=== PATIENT | female | born 1950 | race Caucasian/White ===

== ENCOUNTER 2019-05-07 13:44 | Inpatient (IN) ==
[2019-05-07] MEDS ORDERED: ASPIRIN PO ONE (14:02)
[2019-05-07] MEDS ORDERED: CARDIZEM IV ONE ×3 (14:17→17:33)
[2019-05-07] MEDS ORDERED: ZOFRAN IV ONE (14:20)
--- NOTE | 2019-05-07 14:25 | PROVIDER DOCUMENTATION ---
HPI-Chest Pain - General Chief Complaint: Shortness of Breath Stated Complaint: SOB / COPD Time Seen by Provider: 05/07/19 14:10 Source: patient Allergies/Adverse Reactions: Patient Allergies Allergy/AdvReac Type Severity Reaction Status Date / Time No Known Allergies Allergy Verified 03/07/14 09:14 Home Medications: Home Medication List Medication Instructions Recorded Confirmed Last Taken Type Albuterol [Albuterol Neb] INH 4XDAY 03/07/14 03/07/14 03/06/14 History Hydrocodone/APAP 5 mg/325 mg 1 - 2 tab PO Q6H PRN PRN #18 tablet 03/07/14 Unknown Rx [[place]-5] Ibuprofen 800 mg PO PRN 03/07/14 03/07/14 03/06/14 History - History of Present Illness-CP Nature of Presenting Problem: 68 yr old F, hx of COPD, presenting with sudden onset of generalized body shakes, followed by dull, aching pain in the right and then left shoulder. The pt was at rest, states she developed these shakes out of nowhere. She takes breathing treatments regularly, and states that sometimes she does get shaky after a treatment, but these shakes were completely different. She admits to being ill in recent days with a "bad cold". The pt reports SOB. She was able to drive herself to the ER. Location: reports: shoulder Chest Pain Radiation: reports: shoulders Quality of Pain: reports: dull Severity in ED: moderate Onset/Duration: 1-3 hours ago Timing: still present Context/Activities at Onset: reports: none Associated Symptoms: reports: shortness of breath Nitro Today/Relief: no nitro taken today Aspirin Treatment Today: 325 mg x 1, provided by ED Prior Chest Pain/Cardiac Workup: reports: no prior chest pain Similar Symptoms Previously?: No Review of Systems - Adult - REVIEW OF SYSTEMS - ADULT Constitutional: reports: see HPI Eyes: reports: no symptoms reported Ears, Nose, Mouth & Throat: reports: no symptoms reported Cardiovascular: reports: see HPI Respiratory: reports: see HPI Gastrointestinal: reports: no symptoms reported Genitourinary: reports: no symptoms reported Musculoskeletal: reports: see HPI Integumentary: reports: no symptoms reported Neurological: reports: no symptoms reported Psychiatric: reports: no symptoms reported Endocrine: reports: no symptoms reported Hematologic/Lymphatic: reports: no symptoms reported Allergic/Immunologic: reports: no symptoms reported Past History - Adult - PAST MEDICAL HISTORY-ADULT Review of Records: reports: Nursing Assessment Review Major Childhood Illnesses: reports: denies history Cardiovascular: reports: denies history Respiratory: reports: COPD Gastrointestinal: reports: denies history Obstetrical/Gynecological: reports: denies history Genitourinary: reports: denies history Musculoskeletal: reports: denies history Neurological: reports: denies history Endocrine/Immune: reports: denies history Other Conditions: reports: denies history - PRIOR SURGERIES/PROCEDURES Surgical/Procedure History: reports: hysterectomy - FAMILY HISTORY Family History: reviewed, not pertinent - SOCIAL HISTORY Smoking: cigarettes, less than 1 pack/day Provider spent 3-5 mins advising pt. on dangers of tobacco.: Discussed manners to quit use, and f/u contacts for add'l counseling. Living Situation: family Physical Exam-General - CONSTITUTIONAL General Appearance: alert, mild distress - EYES Eyes: PERRL/EOMI - HEAD, EARS, NOSE, MOUTH & THROAT HENMT: normocephalic/atraumatic, moist mucous membranes - RESPIRATORY Respiratory: lungs clear, normal breath sounds - CARDIOVASCULAR Cardiovascular: tachycardia - GASTROINTESTINAL (ABDOMEN) Abdominal Exam: normal bowel sounds, non tender, soft - SKIN Integumentary: normal color, normal turgor, warm/dry - PSYCHIATRIC Psych/Mental Status: normal mood/affect, oriented x 3 - HEART Score HEART Score: History: Slightly Suspicious HEART Score: ECG: Normal HEART Score: Age: > or = 65 Years HEART Score: Risk Factors for Atherosclerotic Disease: 1 or 2 Risk Factors HEART Score: Troponin: < or = Normal Limit Total HEART Score:: 3 Progress - PLAN OF CARE/RESULTS Progress/Plan/Lab Results: Vital Signs - 8 hr 05/07/19 13:53 05/07/19 15:00 05/07/19 15:14 Temperature 99.1 F 100.4 F H Pulse Rate 146 H 135 H 134 H Respiratory Rate 22 37 H 22 Blood Pressure 153/79 149/78 O2 Sat by Pulse Oximetry 100 99 99 05/07/19 16:00 05/07/19 17:04 05/07/19 18:00 Temperature 100.5 F H 99.5 F Pulse Rate 128 H 130 H 109 H Respiratory Rate 32 H 22 33 H Blood Pressure 113/59 136/79 103/50 O2 Sat by Pulse Oximetry 99 100 99 Laboratory Results - last 24 hr 05/07/19 05/07/19 05/07/19 14:10 14:10 14:10 WBC 9.19 RBC 4.80 Hgb 14.8 Hct 44.6 MCV 92.9 MCH 30.8 MCHC 33.2 RDW Std Deviation 12.9 Plt Count 268 MPV 10.1 Immature Gran % (Auto) 0.2 Neut % (Auto) 88.9 H Lymph % (Auto) 9.6 L Young % (Auto) 0.2 L Eos % (Auto) 0.4 Baso % (Auto) 0.7 Immature Gran # (Auto) 0.02 Neut # (Auto) 8.17 H Lymph # (Auto) 0.88 L Young # (Auto) 0.02 L Eos # (Auto) 0.04 Baso # (Auto) 0.06 PT INR PTT (Actin FS) D-Dimer, Quantitative Sodium 137 Potassium 4.5 Chloride 98 Carbon Dioxide 23 L Anion Gap 16 BUN 6 L Creatinine 0.5 Estimated GFR/1.73 m2 > 60 BUN/Creatinine Ratio 12 Glucose 112 H Calculated Osmolality 272 Calcium 9.4 Magnesium Total Bilirubin 0.70 AST 39 H ALT 27 Alkaline Phosphatase 138 H Creatine Kinase 174 H Creatine Kinase Index 1.5 CK-MB (CK-2) 2.59 Troponin T [id number]-[id number]-Ayqkmvcbqtf Pept 367 H Total Protein 7.7 Albumin 4.4 Globulin 3.0 Albumin/Globulin Ratio 1.0 Plasma Lactate TSH Influenza A (Rapid) Influenza B (Rapid) 05/07/19 05/07/19 05/07/19 14:10 14:10 14:10 WBC RBC Hgb Hct MCV MCH MCHC RDW Std Deviation Plt Count MPV Immature Gran % (Auto) Neut % (Auto) Lymph % (Auto) Young % (Auto) Eos % (Auto) Baso % (Auto) Immature Gran # (Auto) Neut # (Auto) Lymph # (Auto) Young # (Auto) Eos # (Auto) Baso # (Auto) PT 12.7 INR 0.91 PTT (Actin FS) 23.4 D-Dimer, Quantitative Sodium Potassium Chloride Carbon Dioxide Anion Gap BUN Creatinine Estimated GFR/1.73 m2 BUN/Creatinine Ratio Glucose Calculated Osmolality Calcium Magnesium Total Bilirubin AST ALT Alkaline Phosphatase Creatine Kinase Creatine Kinase Index CK-MB (CK-2) Troponin T < 0.010 Mvb-[id number]-Zphfckgdcxb Pept Total Protein Albumin Globulin Albumin/Globulin Ratio Plasma Lactate 2.0 TSH Influenza A (Rapid) Influenza B (Rapid) 05/07/19 05/07/19 05/07/19 14:10 14:10 14:10 WBC RBC Hgb Hct MCV MCH MCHC RDW Std Deviation Plt Count MPV Immature Gran % (Auto) Neut % (Auto) Lymph % (Auto) Young % (Auto) Eos % (Auto) Baso % (Auto) Immature Gran # (Auto) Neut # (Auto) Lymph # (Auto) Young # (Auto) Eos # (Auto) Baso # (Auto) PT INR PTT (Actin FS) D-Dimer, Quantitative 2.30 H Sodium Potassium Chloride Carbon Dioxide Anion Gap BUN Creatinine Estimated GFR/1.73 m2 BUN/Creatinine Ratio Glucose Calculated Osmolality Calcium Magnesium 1.5 Total Bilirubin AST ALT Alkaline Phosphatase Creatine Kinase Creatine Kinase Index CK-MB (CK-2) Troponin T She-T-Podsyfpizkb Pept Total Protein Albumin Globulin Albumin/Globulin Ratio Plasma Lactate TSH 0.36 Influenza A (Rapid) Influenza B (Rapid) 05/07/19 05/07/19 14:50 17:46 WBC RBC Hgb Hct MCV MCH MCHC RDW Std Deviation Plt Count MPV Immature Gran % (Auto) Neut % (Auto) Lymph % (Auto) Young % (Auto) Eos % (Auto) Baso % (Auto) Immature Gran # (Auto) Neut # (Auto) Lymph # (Auto) Young # (Auto) Eos # (Auto) Baso # (Auto) PT INR PTT (Actin FS) D-Dimer, Quantitative Sodium Potassium Chloride Carbon Dioxide Anion Gap BUN Creatinine Estimated GFR/1.73 m2 BUN/Creatinine Ratio Glucose Calculated Osmolality Calcium Magnesium Total Bilirubin AST ALT Alkaline Phosphatase Creatine Kinase Creatine Kinase Index CK-MB (CK-2) Troponin T < 0.010 Vzw-Y-Sxawvchegxl Pept Total Protein Albumin Globulin Albumin/Globulin Ratio Plasma Lactate TSH Influenza A (Rapid) NEGATIVE Influenza B (Rapid) NEGATIVE Orders Category Date Time Status Cardiac Monitoring DIRECTED Care 05/07/19 14:03 Active Nursing- Obtain EKG once Care 05/07/19 17:03 Active Oxygen Therapy- ED Nursing DIRECTED Care 05/07/19 14:03 Active Saline Loc NOW Care 05/07/19 14:03 Active CHEST-PORTABLE [RAD] Stat Exams 05/07/19 14:04 Completed CTA [CT ANGIOGRM PULMONARY ARTERIES] [CT] Stat Exams 05/07/19 15:47 Completed BLOOD CULTURE [BLDCUL] Stat Lab 05/07/19 14:12 Ordered CBC WITH ELECTRONIC DIFF [HEME] Stat Lab 05/07/19 14:10 Completed CK PROFILE [SP CHEM] Stat Lab 05/07/19 14:10 Completed COMPREHENSIVE METABOLIC PANEL [CHEM] Stat Lab 05/07/19 14:10 Completed D-DIMER [COAG] Stat Lab 05/07/19 14:[address] Stat Lab 05/07/19 14:50 Completed LACTATE, PLASMA [CHEM] Stat Lab 05/07/19 14:10 Completed LACTATE, PLASMA [CHEM] Stat Lab 05/07/19 18:53 Ordered MAGNESIUM [CHEM] Stat Lab 05/07/19 14:10 Completed PRO B-NATRIURETIC PEPTIDE Stat Lab 05/07/19 14:10 Completed PROTIME WITH INR [COAG] Stat Lab 05/07/19 14:10 Completed PTT [COAG] Stat Lab 05/07/19 14:10 Completed TROPONIN T Stat Lab 05/07/19 14:10 Completed TROPONIN T Stat Lab 05/07/19 17:46 Completed TSH Stat Lab 05/07/19 14:10 Completed URINALYSIS W/POSS RFLX CULT [URINALYSIS] Stat Lab 05/07/19 16:40 Uncollected 0.9% Sodium Chloride Inj [Ns] 1,000 ml Med 05/07/19 14:48 Discontinued IV 999 mls/hr Acetaminophen [Tylenol] Med 05/07/19 14:49 Discontinued 1,000 mg PO NOW ONE Albuterol 2.5MG/Ipratrop 0.5MG [Duoneb (A & A)] Med 05/07/19 14:57 Discontinued 3 ml INH NOW ONE Aspirin Med 05/07/19 14:02 Discontinued 325 mg PO NOW ONE Diltiazem [Cardizem] Med 05/07/19 14:17 Discontinued 10 mg IV NOW ONE Diltiazem [Cardizem] Med 05/07/19 14:35 Discontinued 15 mg IV NOW ONE Diltiazem [Cardizem] Med 05/07/19 17:33 Discontinued 25 mg IV NOW ONE Methylprednisolone Sod Succ [Solu-Medrol] Med 05/07/19 17:02 Discontinued 125 mg IV NOW ONE Morphine Med 05/07/19 16:50 Discontinued 2 mg IV NOW ONE Ondansetron [Zofran] Med 05/07/19 14:20 Discontinued 8 mg IV NOW ONE Aerosol Treatments Routine Oth 05/07/19 14:57 Completed Aerosol Treatments Stat Oth 05/07/19 14:57 Completed CP/SOB/Palp >45 yrs of Age Stat Oth 05/07/19 14:02 Ordered EKG [EKG] Stat Ther 05/07/19 14:03 Draft EKG [EKG] Stat Ther 05/07/19 17:03 Ordered Transfer/Admit Order [TRANSFER] Routine Transfer 05/07/19 18:19 Ordered Result Diagrams: 05/07/19 14:10 05/07/19 14:10 - REASSESSMENT Reassessment #1 Time Reassessed: 18:00 (Pt's heart rate is still running high; despite 25 mg of Cardizem; she jumpted to 170s after a coughing spell; she did drop back down to 110s after an additional 10 mg of Cardizem, but the pt will likely need additional and continuous cardiac monitoring overnight; Dr. Corley kindly accepts the pt for additional management. ) - EKG 1 Time of EKG reading by physician:: 14:27 EKG Read and Signed by:: Manpreet Jaramillo EKG Interpretation (*Must complete 3 of following elements*): Abnormal Rate: 146 Rhythm: sinus tachycardia [place]: normal QRS: normal [place] Interval: normal ST Wave: non-specific ST changes Prior EKG Comparison: no prior EKG - CT/MRI 1 CT Study: Angiogram Impression: See EMR Report ("EXAM: CT ANGIOGRAM PULMONARY ARTERIES - 05/07/2019 HISTORY: elevated d-dimer, SOB TECHNIQUE: CT angiogram pulmonary arteries with intravenous contrast. Axial, coronal, and 3-D MIP images are obtained. COMPARISON: None. FINDINGS: There are no filling defects identified pulmonary arteries. There is mild ectasia of the ascending aorta at 3.7 cm. There is no indication of aortic dissection. There are COPD/emphysematous changes which are most prominent at the upper lobes and superior segment lower lobes. There is scarring at the right apex. There are a couple of calcifications within the right apical scarring. There is a nonspecific 4 mm pleural-based noncalcified nodule near the minor fissure on the right. There is no consolidation, pleural effusion, or pneumothorax identified. There is an apparent 2.6 x 2.3 cm exophytic nodule which arises at the inferior left thyroid lobe. Included sections of upper abdomen show fatty infiltration of the visualized portion of the liver. There is a 6.7 x 4.8 cm uncomplicated diverticulum which arises at the posterior fundus of stomach. IMPRESSION: No evidence of pulmonary embolism. COPD/emphysematous changes. Scarring at right apex. Nonspecific 4 mm pleural-based nodule near the minor fissure on the right. Recommend follow-up per Fleischner Society guidelines. No evidence of pneumonia. No pleural effusion. No pneumothorax. Mild ectasia of ascending aorta. No indication of aortic dissection. Apparent 2.6 x 2.3 cm exophytic nodule arising at the inferior left thyroid. Correlation with thyroid ultrasound could be considered. Fatty infiltration of visualized liver. Uncomplicated diverticulum arising at posterior fundus of stomach. Electronically signed by Jay Wallace 05/07/2019 4:53 PM") - CONSULTS/PCP/HOSPITALIST Notification #1 *Consult/PCP/Hospitalist*: Dr. Mcqueen Time Discussed: 17:55 Consult Disposition: other (defers [place] [facility] as [place] will likely need cardizem drip and this cannot be done at [place]) #2 Consult: Dr. Corley Consult Disposition: Admit Departure - Departure Date of Disposition Decision: 05/07/19 Time of Disposition Decision: 18:24 DIAGNOSIS: Tachycardia with heart rate 141-160 beats per minute, SOB (shortness of breath) Disposition: ADMITTED INPATIENT 09 Certified Medical Emergency: Emergent Condition: Fair Referrals and Follow-Ups: Papi Ramirez MD [Primary Care Provider] - - Critical Care Note This patient required my direct & personal management of CC.: Yes Total Time (mins): 75 Critical Care Statement: This patient required my direct personal management to treat or rule out processes, the absence of which, could potentiallly result in sudden, clinically significant life or limb threatening deterioration. Attestation - Physician/ FRANCIE Attestation Patient care was provided by Advanced Practice Provider:: No The physician spent face to face time with patient:: Yes Advanced Practice Provider documentation review:: Supervising physician onsite and consulted in the evaluation and care of this patient. The physician did have a face to face encounter with the patient.
[2019-05-07 14:46] LABS: BASO# 0.06 X1000 (0.0-0.2); BASO% 0.7 % (0.0-0.8); EOS# 0.04 X1000 (0.0-0.7); EOS% 0.4 % (0.0-10.0); HEMATOCRIT 44.6 % (37.0-47.0); HEMOGLOBIN 14.8 g/dL (12.0-16.0); IMM GRAN# 0.02 X1000 (0.0-0.04); IMM GRAN% 0.2 % (0.0-0.5); LYMPH# 0.88 X1000 (1.2-3.4); LYMPH% 9.6 % (20.5-51.1); MCH 30.8 PG (27-31); MCHC 33.2 g/dL (33-37); MCV 92.9 FL (81-99); MONO# 0.02 X1000 (0.11-0.59); MONO% 0.2 % (1.7-9.3); MPV 10.1 FL (7.4-10.4); NEUT# 8.17 X1000 (1.4-6.5); NEUT% 88.9 % (42.2-75.2); PLT 268 X1000 (130-400); RDW 12.9 % (11.5-14.5); WBC 9.19 X1000 (4.8-10.8)
[2019-05-07] MEDS ORDERED: NS 1,000 ML IV ONE (14:48)
[2019-05-07] MEDS ORDERED: TYLENOL PO ONE (14:49)
[2019-05-07 14:54] LABS: INR 0.91; PROTIME 12.7 Seconds (11.0-16.0); PTT 23.4 Seconds (22.3-41.8)
[2019-05-07] MEDS ORDERED: DUONEB (A & A) INH ONE (14:57)
[2019-05-07 14:59] LABS: AGAP 16; ALBUMIN 4.4 g/dL (3.5-5.0); ALKALINE PHOSPHATASE 138 U/L (32-104); BUN 6 mg/dL (8-22); CALCIUM 9.4 mg/dL (8.8-10.2); CHLORIDE 98 mmol/L (98-107); COSMO 272; CREATININE 0.5 mg/dL (0.5-0.9); ESTIMATED GFR > 60; GLUCOSE 112 mg/dL (70-104); GOT 39 U/L (10-30); GPT 27 U/L (10-36); POTASSIUM 4.5 mmol/L (3.5-5.1); SODIUM 137 mmol/L (136-145); TCO2 23 mmol/L (25-35); TOTAL PROTEIN 7.7 g/dL (6.3-8.3)
[2019-05-07 15:01] LABS: CK PROFILE 174 U/L (24-173)
--- NOTE | 2019-05-07 15:02 | Diag Imaging Result Doc PS360 ---
EXAM: CHEST-PORTABLE - 05/07/2019 HISTORY: sob copd chest pressure TECHNIQUE: Portable chest COMPARISON: 09/09/2015 chest two views FINDINGS: Heart size is normal. There are apparent COPD changes, the lungs do not appear hyperexpanded at this time. There is scarring at the right apex similar to prior. There is no acute consolidation, pleural effusion, or pneumothorax identified. IMPRESSION: COPD changes. Scarring at right apex. No discrete acute changes. Electronically signed by Jay Wallace 05/07/2019 2:59 PM
--- NOTE | 2019-05-07 15:13 | EKG Report ---
Test Performed on : 05/07/2019 2:22:39 PM Test Reason : sob tachycardiac pressure Blood Pressure : / mmHG Vent. Rate : 146 BPM Atrial Rate : 146 BPM P-R Int : 140 ms QRS Dur : 078 ms QT Int : 262 ms P-R-T Axes : 060 037 062 degrees QTc Int : 408 ms Sinus tachycardia. Nonspecific ST abnormality Abnormal ECG No previous ECGs available Confirmed by Papi Ramirez MD ([id number]), design editor Geovanna Bermudez ([id number]) on 06/15/2019 12:37:55 PM
[2019-05-07 15:26] LABS: CK INDEX 1.5 (0.0-2.5); CK-MB 2.59 ng/mL (0.0-5.0)
[2019-05-07 15:56] LABS: INFLUENZA A NEGATIVE (NEGATIVE); INFLUENZA B NEGATIVE (NEGATIVE)
[2019-05-07] MEDS ORDERED: MORPHINE IV ONE (16:50)
--- NOTE | 2019-05-07 16:55 | Diag Imaging Result Doc PS360 ---
EXAM: CT ANGIOGRAM PULMONARY ARTERIES - 05/07/2019 HISTORY: elevated d-dimer, SOB TECHNIQUE: CT angiogram pulmonary arteries with intravenous contrast. Axial, coronal, and 3-D MIP images are obtained. COMPARISON: None. FINDINGS: There are no filling defects identified pulmonary arteries. There is mild ectasia of the ascending aorta at 3.7 cm. There is no indication of aortic dissection. There are COPD/emphysematous changes which are most prominent at the upper lobes and superior segment lower lobes. There is scarring at the right apex. There are a couple of calcifications within the right apical scarring. There is a nonspecific 4 mm pleural-based noncalcified nodule near the minor fissure on the right. There is no consolidation, pleural effusion, or pneumothorax identified. There is an apparent 2.6 x 2.3 cm exophytic nodule which arises at the inferior left thyroid lobe. Included sections of upper abdomen show fatty infiltration of the visualized portion of the liver. There is a 6.7 x 4.8 cm uncomplicated diverticulum which arises at the posterior fundus of stomach. IMPRESSION: No evidence of pulmonary embolism. COPD/emphysematous changes. Scarring at right apex. Nonspecific 4 mm pleural-based nodule near the minor fissure on the right. Recommend follow-up per Fleischner Society guidelines. No evidence of pneumonia. No pleural effusion. No pneumothorax. Mild ectasia of ascending aorta. No indication of aortic dissection. Apparent 2.6 x 2.3 cm exophytic nodule arising at the inferior left thyroid. Correlation with thyroid ultrasound could be considered. Fatty infiltration of visualized liver. Uncomplicated diverticulum arising at posterior fundus of stomach. Electronically signed by Jay Wallace 05/07/2019 4:53 PM
[2019-05-07] MEDS ORDERED: SOLU-MEDROL IV ONE (17:02)
--- NOTE | 2019-05-07 19:23 | HISTORY AND PHYSICAL ---
CHIEF COMPLAINT: Shortness of breath. HISTORY OF PRESENT ILLNESS: The patient is a 68-year-old female who has a known history of COPD. She presented to the emergency department with increased work of breathing and shortness of breath. Notes that she had generalized body shaking earlier followed by dull aching pain in her right arm and left shoulder. States that these shakes came out of nowhere. Notes that she has been taking breathing treatments regularly. Sometimes she gets shaky after the treatments, but this seemed to be completely different. She has had a cold for the past couple of days with increased work of breathing. She was able to drive herself to the ER. ALLERGIES: No known drug allergies. MEDICATIONS: 1. Albuterol. 2. [place] p.r.n. REVIEW OF SYSTEMS: As noted above. Positive cough, congestion, increased work of breathing. She has had increased shortness of breath over the past few days. Denies any fevers, chills, headaches, blurred vision. Denies any focalized numbness, tingling, weakness in her extremities. Did have shaking earlier with generalized body shakes. Denies any dysuria, frequency, urgency, hesitancy, polyuria or polydipsia. Denies skin rashes, weight loss or weight gain. PAST MEDICAL HISTORY: Significant for COPD. She has had a hysterectomy. SOCIAL HISTORY: She does smoke, although less than a pack a day. Denies alcohol or other illicit substance use. PRIMARY CARE: Dr. Papi Ramirez. FAMILY HISTORY: Positive for COPD. PHYSICAL EXAMINATION: VITAL SIGNS: Reviewed. Temperature 99 degrees. Pulse 146 initially, currently 106 after Cardizem. Respiratory 22. BP 153/79. Oxygen saturation 100% on room air. GENERAL: Patient is a well developed female who is in mild respiratory distress. She is very pleasant to talk with and answers all questions. HEENT: Normocephalic. NECK: Supple. CV: Tachycardia, although appears regular rhythm. CHEST: Decreased, but equal. No current crackles appreciable. No current wheezing. ABDOMEN: Soft, nondistended, nontender. EXTREMITIES: Moves all extremities. NEUROLOGIC: No focal changes. She is awake, alert, oriented x3. LABS: CTA is negative for pulmonary emboli. It is positive for COPD changes. CBC and CMP are essentially negative. D-dimer 2.3 with no previous history on record. BNP is normal at 367. Influenza A and B are both negative. ASSESSMENT: 1. Supraventricular tachycardia. 2. Chronic obstructive pulmonary disease. 3. Elevated D-dimer with a negative CTA. Lower extremity Doppler is pending. PLAN: 1. We are going to admit patient to the hospital. 2. She has had intravenous Cardizem in the emergency room already and her heart rates have dropped to 100s and 110s. 3. We are going to place her in the hospital, continue to follow her labs. 4. Check ultrasound of lower extremities. 5. Use intravenous Cardizem as needed. 6. Further orders as needed. cc: Rafa Corley MD
[2019-05-07 19:41] LABS: URINE SOURCE CLEAN CATCH
[2019-05-07 19:45] LABS: BILIRUBIN URINE NEGATIVE (NEGATIVE); BLOOD URINE SMALL (NEGATIVE); COLOR YELLOW; GLUCOSE URINE NEGATIVE (NEGATIVE); KETONE URINE NEGATIVE (NEGATIVE); LEUKOCYTES URINE LARGE (NEGATIVE); NITRITE URINE POSITIVE (NEGATIVE); PH URINE 6.5; PROTEIN URINE 30 mg/dL (NEGATIVE); SP GRAVITY URINE 1.047; TURBIDITY URINE HAZY (CLEAR); UROBILINOGEN URINE NORMAL (NORMAL)
[2019-05-07 19:56] LABS: URINE WBC TNTC /HPF (<10)
[2019-05-07 19:58] LABS: UR EPITHELIAL CELLS <10 /HPF (<10); URINE BACTERIA 2+ /HPF; URINE RBC <10 /HPF (<10)
[2019-05-07 19:59] LABS: URINE CASTS NONE SEEN; URINE CRYSTALS NONE SEEN; URINE SMALL ROUND CELLS NONE SEEN; URINE YEAST NONE SEEN
[2019-05-07] MEDS ORDERED: CARDIZEM IV PRN (21:03)
[2019-05-07] MEDS: TYLENOL PO PRN (21:20)
[2019-05-07] MEDS ORDERED: TESSALON PO PRN (21:40)
[2019-05-08] MEDS: XOPENEX NEB INH PRN ×6 (03:30→23:05)
--- NOTE | 2019-05-08 06:28 | Diag Imaging Result Doc PS360 ---
EXAM: CHEST-PORTABLE HISTORY: f/u TECHNIQUE: Single view COMPARISON: 05/07/2019 FINDINGS: The lungs are well expanded. No cardiomegaly. Increased interstitial markings in the right upper lung are unchanged. No pleural effusions identified. No pulmonary edema. IMPRESSION: Stable chest Electronically signed by Dexter Dejesus 05/08/2019 6:25 AM
[2019-05-08 06:37] LABS: BASO# 0.02 X1000 (0.0-0.2); BASO% 0.1 % (0.0-0.8); EOS# 0.01 X1000 (0.0-0.7); HEMATOCRIT 38.9 % (37.0-47.0); HEMOGLOBIN 12.8 g/dL (12.0-16.0); IMM GRAN# 0.09 X1000 (0.0-0.04); IMM GRAN% 0.4 % (0.0-0.5); LYMPH# 1.24 X1000 (1.2-3.4); LYMPH% 5.1 % (20.5-51.1); MCH 31.1 PG (27-31); MCHC 32.9 g/dL (33-37); MCV 94.4 FL (81-99); MONO# 0.58 X1000 (0.11-0.59); MONO% 2.4 % (1.7-9.3); NEUT# 22.38 X1000 (1.4-6.5); PLT 245 X1000 (130-400); RBC 4.12 XMIL (4.2-5.4); RDW 13.2 % (11.5-14.5); WBC 24.32 X1000 (4.8-10.8)
[2019-05-08 06:51] LABS: AGAP 11; ALB/GLOB RATIO 1.3; ALBUMIN 3.4 g/dL (3.5-5.0); ALKALINE PHOSPHATASE 109 U/L (32-104); BUN 10 mg/dL (8-22); CALCIUM 8.6 mg/dL (8.8-10.2); CHLORIDE 99 mmol/L (98-107); COSMO 272; CREATININE 0.5 mg/dL (0.5-0.9); ESTIMATED GFR > 60; GLUCOSE 182 mg/dL (70-104); GOT 18 U/L (10-30); GPT 18 U/L (10-36); MAGNESIUM 1.8 mg/dL (1.5-2.7); POTASSIUM 3.9 mmol/L (3.5-5.1); SODIUM 134 mmol/L (136-145); TCO2 24 mmol/L (25-35); TOTAL BILIRUBIN 0.51 mg/dL (0.20-1.00); TOTAL PROTEIN 6.1 g/dL (6.3-8.3)
[2019-05-08 07:16] LABS: FREE T4 1.27 ng/dL (0.93-1.70); TSH 0.19 uIUmL (0.27-4.20)
--- NOTE | 2019-05-08 07:25 | EKG Report ---
Test Performed on : 05/08/2019 07:06:59 AM Test Reason : tachycardia' Blood Pressure : / mmHG Vent. Rate : 088 BPM Atrial Rate : 088 BPM P-R Int : 178 ms QRS Dur : 090 ms QT Int : 380 ms P-R-T Axes : 078 052 073 degrees QTc Int : 459 ms Normal sinus rhythm. Normal ECG When compared with ECG of 07-MAY-2019 14:22, (Unconfirmed) Vent. rate has decreased BY 58 BPM Confirmed by Jose MCPHERSON, [place] ([id number]) on 05/08/2019 11:25:38 AM
[2019-05-08 08:14] LABS: LYMPHS 4 % (21-51); SEGS 96 % (42-75)
--- NOTE | 2019-05-08 10:04 | Diag Imaging Result Doc PS360 ---
EXAM: US SOFT TISSUE HEAD/NECK HISTORY: Thyroid nodule eval TECHNIQUE: Thyroid ultrasound COMPARISON: Recent chest CT FINDINGS: The right lobe of the thyroid measures 3.8 x 1.7 x 1.8 cm. The left lobe of the thyroid measures 3.7 x 1.4 x 1.5 cm. There are multiple scattered tiny nodules and cysts throughout both lobes. The majority of these measure only several millimeters. There is a 1.0 cm fairly isoechoic nodule in the left lobe. Dominant nodule inferior to the left thyroid lobe is not definitely identified. IMPRESSION: Multiple tiny scattered nodules and cysts. Electronically signed by Dexter Dejesus 05/08/2019 10:01 AM
[2019-05-08] MEDS: INVANZ 1 GM/NS 1 GM/50 ML IVPB IV SCH (10:29)
[2019-05-08] MEDS: TYLENOL PO PRN ×2 (10:29→20:50)
[2019-05-08] MEDS: ZOFRAN IV PRN (10:29)
--- NOTE | 2019-05-08 12:30 | PROGRESS NOTE ---
DATE: 05/08/2019 SUBJECTIVE: Patient reports feeling fine. No chest pain or chest palpitations. OBJECTIVE: Vital Signs: Temperature 98.1, heart rate 99, respiratory rate 21, blood pressure 118/50, and O2 saturation 100% on 2 liters nasal cannula. General: This is a 68-year-old female, lying in bed, in no acute distress. Cardiovascular: S1, S2 heard. No murmurs, gallops, or rubs. Regular rate and rhythm. Respiratory: Minimal wheezing noted in both pulmonary bases. Patient not using any accessory muscles or having work of breathing. Abdomen: Soft. Nontender to palpation. Bowel sounds present. No organomegaly. Extremities: No clubbing, cyanosis, or edema. Peripheral pulses present in both legs. Neurological: Patient is alert and oriented x3. Moves 4 extremities. LABORATORY DATA: White cell count 24.32, hemoglobin 12.8, hematocrit 38.9. Sodium 134. Urine culture and blood culture showed gram negative rods. ASSESSMENT AND PLAN: 1. Gram-negative bacteremia secondary to urinary tract infection. That is the reason why this patient has become tachycardic. At this point, we are going to start Invanz on this patient. We are going to cancel Cardiology consult because I think this tachycardia is secondary to infection. We will await for results of blood cultures. We will adjust our antibiotic therapy accordingly. Actually, at this point blood pressure is okay. The patient is not tachycardic anymore. We will continue to monitor in the PVC unit. 2. Chronic obstructive pulmonary disease. The patient is not on any exacerbation. We will provide breathing treatments as needed only. 3. Disposition. We will continue with current management. cc: Saurav Pennington MD
[2019-05-09 06:18] LABS: BASO# 0.01 X1000 (0.0-0.2); BASO% 0.1 % (0.0-0.8); EOS# 0.04 X1000 (0.0-0.7); EOS% 0.2 % (0.0-10.0); HEMATOCRIT 35.9 % (37.0-47.0); HEMOGLOBIN 11.5 g/dL (12.0-16.0); IMM GRAN# 0.07 X1000 (0.0-0.04); IMM GRAN% 0.4 % (0.0-0.5); LYMPH# 2.03 X1000 (1.2-3.4); LYMPH% 11.3 % (20.5-51.1); MCH 30.3 PG (27-31); MCV 94.7 FL (81-99); MONO# 0.97 X1000 (0.11-0.59); MONO% 5.4 % (1.7-9.3); MPV 10.1 FL (7.4-10.4); NEUT% 82.6 % (42.2-75.2); PLT 242 X1000 (130-400); RBC 3.79 XMIL (4.2-5.4); RDW 13.2 % (11.5-14.5); WBC 17.92 X1000 (4.8-10.8)
[2019-05-09 06:49] LABS: AGAP 10; ALBUMIN 3.2 g/dL (3.5-5.0); BUN 10 mg/dL (8-22); CALCIUM 8.7 mg/dL (8.8-10.2); CHLORIDE 102 mmol/L (98-107); COSMO 277; CREATININE 0.6 mg/dL (0.5-0.9); ESTIMATED GFR > 60; GLUCOSE 114 mg/dL (70-104); PHOSPHORUS 2.6 mg/dL (2.7-4.5); POTASSIUM 3.5 mmol/L (3.5-5.1); SODIUM 139 mmol/L (136-145); TCO2 27 mmol/L (25-35)
[2019-05-09] MEDS: XOPENEX NEB INH PRN ×3 (07:52→15:42)
[2019-05-09] MEDS: INVANZ 1 GM/NS 1 GM/50 ML IVPB IV SCH (08:28)
--- NOTE | 2019-05-09 10:21 | PROGRESS NOTE ---
DATE: 05/09/2019 SUBJECTIVE: Patient reports feeling fine. Not spiking any fever. OBJECTIVE: Vitals: Temperature 97.9 degrees, heart rate 87, respiratory 17, blood pressure 125/64, O2 saturation 98% 2 L nasal cannula. General Examination: This is a 68-year-old female, lying in bed in no acute distress. Cardiovascular exam: S1, S2 heard. No murmurs, gallops, or rubs. Regular rate and rhythm. Respiratory exam: Minimal wheezing noted in both pulmonary bases. Patient not using any accessory muscles or having work of breathing. Abdomen: Soft, nontender to palpation. Bowel sounds present. No organomegaly. Extremities: No clubbing, cyanosis, or edema. Peripheral pulses present in both legs. Neurological exam: Patient alert and oriented x3. Moves 4 extremities. LABORATORY DATA: White cell count is 17.92, hemoglobin 11.5, hematocrit 35.9, platelets 242. BMP okay. ASSESSMENT AND PLAN: 1. Gram-negative bacteremia secondary to urinary tract infection. So far the urine culture showed Escherichia coli pansensitive. We will continue with Invanz until we know the final sensitivity of the blood culture. She has been admitted to the hospital for tachycardia that was definitely secondary to this blood infection. Now. she is feeling much better. Blood pressure is okay, not tachycardic anymore. So, at this point, we will transfer this patient out of our PVC unit today. 2. Chronic obstructive pulmonary disease. The patient is not in any exacerbation. We will provide breathing treatments as needed only. 3. Disposition: Patient will continue with current management and will be transferred out of the PVC unit today. cc: Saurav Pennington MD
[2019-05-09] MEDS: TYLENOL PO PRN (16:25)
[2019-05-09] MEDS: ZOFRAN IV PRN (16:26)
[2019-05-09] MEDS ORDERED: DESYREL PO SCH (21:00)
[2019-05-10 06:35] LABS: BASO# 0.04 X1000 (0.0-0.2); BASO% 0.5 % (0.0-0.8); EOS% 1.2 % (0.0-10.0); HEMATOCRIT 39.1 % (37.0-47.0); HEMOGLOBIN 12.5 g/dL (12.0-16.0); IMM GRAN# 0.02 X1000 (0.0-0.04); IMM GRAN% 0.2 % (0.0-0.5); LYMPH# 1.56 X1000 (1.2-3.4); LYMPH% 18.7 % (20.5-51.1); MCH 30.4 PG (27-31); MCV 95.1 FL (81-99); MONO# 0.54 X1000 (0.11-0.59); MONO% 6.5 % (1.7-9.3); MPV 9.7 FL (7.4-10.4); NEUT# 6.09 X1000 (1.4-6.5); NEUT% 72.9 % (42.2-75.2); PLT 250 X1000 (130-400); RBC 4.11 XMIL (4.2-5.4); RDW 13.1 % (11.5-14.5); WBC 8.35 X1000 (4.8-10.8)
[2019-05-10] MEDS ORDERED: PRILOSEC PO SCH (07:00)
[2019-05-10 07:13] LABS: AGAP 12; ALBUMIN 3.2 g/dL (3.5-5.0); BUN 8 mg/dL (8-22); CALCIUM 8.9 mg/dL (8.8-10.2); CHLORIDE 102 mmol/L (98-107); COSMO 280; CREATININE 0.6 mg/dL (0.5-0.9); ESTIMATED GFR > 60; GLUCOSE 104 mg/dL (70-104); PHOSPHORUS 3.2 mg/dL (2.7-4.5); POTASSIUM 3.8 mmol/L (3.5-5.1); SODIUM 141 mmol/L (136-145); TCO2 27 mmol/L (25-35)
[2019-05-10 07:24] VITALS: BP 137/66
[2019-05-10] MEDS: INVANZ 1 GM/NS 1 GM/50 ML IVPB IV SCH (09:25)
[2019-05-10] MEDS ORDERED: LEVAQUIN PO ONE (10:25)
--- NOTE | 2019-05-10 16:17 | DISCHARGE SUMMARY ---
ADMISSION DATE: 05/07/2019 DISCHARGE DATE: 05/10/2019 DISCHARGE DIAGNOSES: 1. Escherichia coli bacteremia, improved. 2. Sepsis secondary to condition #1. 3. Sinus tachycardia secondary to condition #1 and 2. 4. Chronic obstructive pulmonary disease, not in any exacerbation. PROCEDURES: 1. Chest x-ray done on admission showed COPD changes with scarring in the right apex but no discrete acute changes. 2. Pulmonary arteriogram showed no evidence of pulmonary embolism. COPD and emphysematous changes and nonspecific 4 mm pleural-based nodule near to the minor fissure on the right but no evidence of pneumonia or pleural effusion or pneumothorax. A 2.6 x 2.3 cm exophytic nodule arising at the inferior left thyroid. 3. Head and neck ultrasound showed multiple tiny scattered nodules and cysts. HOSPITAL COURSE: This is a 68-year-old female with no history of COPD, who presented to the emergency department complaining of increased work of breathing and shortness of breath. She had generalized body shaking. She was initially seen in [facility]. She was sent to [facility] for possible supraventricular tachycardia. On checking on this patient next day here, we found out that her white cell count got really high, 24,000 and blood cultures turned out to be positive for gram-negative bacteremia. Patient was started on broad-spectrum antibiotics, and since then heart rate has been controlled. Finally the sensitivity showed E coli pansensitive in the blood culture and also in the urine, fortunately sensitive to Levaquin. So patient was feeling okay with heart rate under control without needing any heart rate medications like Cardizem or beta blockers. The patient is going to complete 14 days of antibiotics, in this case Levaquin. The patient is going to be discharged in stable condition. DISCHARGE PHYSICAL EXAMINATION: Vitals: Temperature 98.8 degrees, heart rate 99, respiratory rate 18, blood pressure 137/66. O2 saturation 94% on room air. General: This is a 68-year-old female lying in bed, in no acute distress. Cardiovascular: S1, S2 heard. No murmurs, gallops, or rubs. Regular rate and rhythm. Respiratory: Clear bilaterally to auscultation. No work of breathing or using accessory muscles. Abdomen: Soft. Nontender to palpation. Bowel sounds present. No organomegaly. Extremities: No clubbing, cyanosis, or edema. Peripheral pulses present in both legs. Neurological: The patient is alert and oriented x3. Moves 4 extremities. DISCHARGE DISPOSITION: Home to self-care. DISCHARGE MEDICATIONS: 1. Levaquin 750 mg 1 tablet p.o. daily for 14 days. 2. Tramadol 50 mg 1 tablet p.o. q.6 hours as needed for pain. 3. Albuterol 4 times per day p.r.n. for shortness of breath. 4. Trazodone 50 mg 1 tablet p.o. at bedtime. 5. Omeprazole 40 mg 1 tablet p.o. daily. 6. ProAir 2 inhalations q.4 hours as needed for shortness of breath. FOLLOW UP: With his primary care physician, Dr. Ramirez, in a week. cc: Saurav Pennington MD MTDD
== END 2019-05-10 11:38 | disposition home or self-care (01) | DRG 872 ==
LOC: P.ED 13:44 → 2N 20:16 → SUATTDRO 20:16 → 4N 05-09 16:45
PROVIDERS: ATTEND Internal Medicine